=== PATIENT | male | born 1990 | race Caucasian/White ===

== ENCOUNTER 2018-06-15 16:02 | Emergency (ER) | payer BC, MEDICAID ==
[~2018-06-15] VITALS: Ht 177.8 cm; Wt 80.7 kg
[2018-06-15 17:10] VITALS: BP 112/79
--- NOTE | 2018-06-15 17:10 | NUR ---
Patient discharged to home in stable conditon. Written and verbal after care instructions given. Patient verbalizes understanding of instructions.
== END 2018-06-15 17:11 | disposition home or self-care (01) ==
LOC: ER 16:02
DX: S62.390A Other fracture of second metacarpal bone, right hand, initial encounter for closed fracture (principal); Z88.0 Allergy status to penicillin; W51.XXXA Accidental striking against or bumped into by another person, initial encounter; Y93.89 Activity, other specified; Y92.89 Other specified places as the place of occurrence of the external cause; Y99.8 Other external cause status
CPT/HCPCS: 73130; A4663